=== PATIENT | male | born 1990 | race Caucasian/White ===

== ENCOUNTER 2016-09-11 07:26 | Emergency (ER) | payer OTHER ==
[~2016-09-11 07:26] MED LIST: NO MEDICATIONS; PEN-VEE K PO; TOBREX5 ML OP; TYLENOL #3; VOLTAREN50 MG PO
== END 2016-09-11 07:37 | disposition home or self-care (01) ==
LOC: SED 07:26
DX: H66.91 Otitis media, unspecified, right ear (principal); F17.200 Nicotine dependence, unspecified, uncomplicated
CPT/HCPCS: 99282

== ENCOUNTER 2016-10-08 13:36 | Emergency (ER) | payer OTHER | END 2016-10-08 13:51 | disposition home or self-care (01) | LOC: SED 13:36 | DX: G51.0 Bell's palsy (principal) | CPT/HCPCS: 99283 ==